=== PATIENT | male | born 1935 | race Caucasian/White ===

== ENCOUNTER 2018-11-25 16:03 | Emergency (ER) | payer MEDICARE ==
[~2018-11-25 16:03] MED LIST: Iopamidol 370 76% 100 ML VIAL ONE
[2018-11-25] MEDS ORDERED: Sodium Chloride 0.9% 1,000 ML ONE ×2 (16:29→18:18)
[2018-11-25 16:40] LABS: #Eosinphils 0.1 thou/uL (0.0-0.7); #Lymphocytes 0.5 thou/uL (1.20-3.40); #Monocytes 0.4 thou/uL (0.11-0.59); #Neutrophils 9.1 thou/uL (1.40-6.50); %Basophils 0.3 % (0.0-1.0); %Eosinophils 1.3 % (0.0-10.0); %Lymphocytes 5.1 % (21.0-51.0); %Monocytes 4.2 % (0.0-10.0); %Neutrophils 89.1 % (42.0-75.0); Hemoglobin 15.3 g/dL (14.0-18.0); Mean Corpuscular HGB CONC 33.3 g/dL (32.0-36.0); Mean Corpuscular Hemoglobin 30.9 pg (27.0-31.0); Mean Corpuscular Volume 92.9 fL (78.0-98.0); Mean Platelet Volume 6.9 fL (7.4-10.4); Platelet Count 217 thou/uL (130-400); RBC Distribution Width 12.4 % (11.5-14.5); Red Blood Cell (RBC) Count 4.94 mill/uL (4.70-6.10); White Blood Cell (WBC) Count 10.2 thou/uL (4.8-10.8)
[2018-11-25] MEDS ORDERED: Ondansetron PF 4 MG/2 ML Vial ONE (16:41)
[2018-11-25 16:52] LABS: ALT (SGPT) 31 U/L (8-55); AST (SGOT) 26 U/L (5-34); Albumin 4.5 g/dL (3.4-4.8); Alkaline Phosphatase 57 U/L (40-150); Anion Gap 16 mmol/L (10-20); BUN (Urea Nitrogen) 28 mg/dL (8.4-25.7); Bilirubin, Total 0.9 mg/dL (0.2-1.2); Calc. Creatinine Clearance 0 mL/min (70-130); Calcium 11.1 mg/dL (7.8-10.44); Carbon Dioxide 22 mmol/L (23-31); Chloride 103 mmol/L (98-107); Estimated GFR-MDRD 46; Globulin 2.8 g/dL (2.4-3.5); Glucose 100 mg/dL (83-110); Potassium 4.3 mmol/L (3.5-5.1); Protein, Total 7.3 g/dL (5.8-8.1); Sodium 137 mmol/L (136-145)
--- NOTE | 2018-11-25 17:02 | RAD ---
FRONTAL RADIOGRAPH CHEST: 11/25/18 COMPARISON: 04/17/14. HISTORY: Dizziness, hypotension. FINDINGS: There is mild pulmonary vascular congestion and diffuse mild increased linear interstitial density wi th no pneumothorax, pleural fluid, focal consolidation or alveolar edema. IMPRESSION: No acute findings. POS: [facility]
[2018-11-25] MEDS ORDERED: Aspirin Chewable 81 MG TAB ONE (17:31)
--- NOTE | 2018-11-25 18:38 | CT ---
CT angiogram chest: 11/25/2018 COMPARISON: None HISTORY: Chest pain, assess for pulmonary embolism TECHNIQUE: Axial CT imaging at 2.5 mm intervals through the chest with IV contrast using CT angiogram protocol with coronal and sagittal 3-D reformatted imaging. FINDINGS: Imaged upper abdomen demonstrates multiple hepatic hypodensities suggesting cysts. No pleur al, pericardial, or mediastinal fluid. No mediastinal, hilar, or axillary lymphadenopathy. No pulmonary arterial filling defects seen to suggest the presence of acute pulmonary arterial emboli sm. Scattered emphysematous changes are noted within both lungs with an upper lobe predominance. There is mild increased linear interstitial density noted peripherally. No acute pulmonary parenchymal abnormality noted. Review of the osseous structures demonstrates no acute findings. IMPRESSION: Chronic findings as detailed above. No evidence for pulmonary arterial embolism.
== END 2018-11-25 19:45 | disposition short-term general hospital (02) ==
LOC: NAV ERS 16:03
DX: R07.2 Precordial pain (principal); R94.31 Abnormal electrocardiogram [ECG] [EKG]; I12.9 Hypertensive chronic kidney disease with stage 1 through stage 4 chronic kidney disease, or unspecified chronic kidney disease; N18.9 Chronic kidney disease, unspecified; R42 Dizziness and giddiness; R79.1 Abnormal coagulation profile; I71.4 Abdominal aortic aneurysm, without rupture; I20.9 Angina pectoris, unspecified; Z79.899 Other long term (current) drug therapy; Z87.891 Personal history of nicotine dependence
CPT/HCPCS: 71045; 71275; 80053; 83880; 84484; 85025; 85379; 93005; 94760; 96361; 96374; J2405; J7050; Q9967

== ENCOUNTER → 2019-10-19 | Emergency (ER) | payer MEDICARE | LOC: NAV ERS 15:26 | DX: L23.7 Allergic contact dermatitis due to plants, except food (principal); I10 Essential (primary) hypertension; E03.9 Hypothyroidism, unspecified; I25.119 Atherosclerotic heart disease of native coronary artery with unspecified angina pectoris; N40.0 Benign prostatic hyperplasia without lower urinary tract symptoms; E78.5 Hyperlipidemia, unspecified; E78.00 Pure hypercholesterolemia, unspecified; Z87.891 Personal history of nicotine dependence; Z79.899 Other long term (current) drug therapy | CPT/HCPCS: 99282 ==

== ENCOUNTER 2020-03-22 09:37 | Emergency (ER) | payer MEDICARE ==
--- NOTE | 2020-03-22 10:21 | RAD ---
Chest AP view INDICATION: Tachycardia and shortness of breath COMPARISON: November 25, 2018 FINDINGS: Lungs: The lungs are clear Cardiac silhouette: The cardiomediastinal silhouette appears within normal limits. Pulmonary vasculature: Normal Pleural spaces: No pleural effusion or pneumothorax is demonstrated. Upper abdomen: No abnormality seen. Osseous structures: No acute osseous abnormality. Additional findings: None. IMPRESSION: No acute cardiopulmonary abnormality.
[2020-03-22 10:26] LABS: INR-International Normal Ratio 1.1; Prothrombin Time 14.5 sec (12.0-14.7)
[2020-03-22 10:27] LABS: D-Dimer Test 1.4 *mcg/mL (0.27-0.43)
[2020-03-22 10:35] LABS: ALT (SGPT) 25 U/L (8-55); AST (SGOT) 23 U/L (5-34); Albumin 4.1 g/dL (3.4-4.8); Alkaline Phosphatase 51 U/L (40-110); Anion Gap 16 mmol/L (10-20); BUN (Urea Nitrogen) 23 mg/dL (8.4-25.7); Bilirubin, Total 0.5 mg/dL (0.2-1.2); Calc. Creatinine Clearance 0 mL/min (70-130); Carbon Dioxide 19 mmol/L (23-31); Chloride 107 mmol/L (98-107); Estimated GFR-MDRD 58; Globulin 2.7 g/dL (2.4-3.5); Glucose 111 mg/dL (83-110); Potassium 3.8 mmol/L (3.5-5.1); Protein, Total 6.8 g/dL (5.8-8.1); Sodium 138 mmol/L (136-145)
[2020-03-22 10:42] LABS: #Basophils 0.1 thou/uL (0.0-0.2); #Eosinphils 0.1 thou/uL (0.0-0.7); #Lymphocytes 1.5 thou/uL (1.20-3.40); #Monocytes 0.5 thou/uL (0.11-0.59); #Neutrophils 3.5 thou/uL (1.40-6.50); %Basophils 1.3 % (0.0-1.0); %Lymphocytes 26.7 % (21.0-51.0); %Neutrophils 62.1 % (42.0-75.0); Hemoglobin 14.7 g/dL (14.0-18.0); Mean Corpuscular HGB CONC 33.4 g/dL (32.0-36.0); Mean Corpuscular Volume 95.7 fL (78.0-98.0); Mean Platelet Volume 6.9 fL (7.4-10.4); Platelet Count 195 thou/uL (130-400); Red Blood Cell (RBC) Count 4.59 mill/uL (4.70-6.10); White Blood Cell (WBC) Count 5.6 thou/uL (4.8-10.8)
--- NOTE | 2020-03-22 11:47 | CT ---
CTA Angio Chest W WO Con 03/22/2020 10:48 AM Indication: Tachycardia with shortness of breath Technique: Multiple CTA images were obtained of the thorax with IV contrast. 3-D rendering: MIP sallie nstructed images were created and reviewed. Comparison: Prior CT PE examination dated November 25, 2018 Findings: Pulmonary arteries: No central or segmental pulmonary embolus is evident. Heart and Aorta: Normal appearing. Mediastinum:Normal appearing. No enlarged lymph nodes. Lungs:Scattered emphysema. No consolidation. Pleural space: Clear. Upper Abdomen: Multiple hepatic cysts. Osseous Structures: There is scattered degenerative and osteoarthritic change present. No acute frac ture or subluxation demonstrated. Soft tissues:No abnormality. Other findings:None. Impression: No central or segmental pulmonary embolus. Scattered emphysema.
[2020-03-22] MEDS ORDERED: Aspirin Chewable 81 MG TAB ONE (12:28)
== END 2020-03-22 12:51 | disposition short-term general hospital (02) ==
LOC: NAV ERS 09:37
DX: R06.02 Shortness of breath (principal); R07.89 Other chest pain; E03.9 Hypothyroidism, unspecified; E78.00 Pure hypercholesterolemia, unspecified; I10 Essential (primary) hypertension; Z87.891 Personal history of nicotine dependence; Z79.899 Other long term (current) drug therapy; Z79.82 Long term (current) use of aspirin
CPT/HCPCS: 71045; 71275; 80053; 83605; 83880; 84484; 85025; 85379; 85610; 85730; 93005; Q9967

== ENCOUNTER 2021-12-31 12:32 | Emergency (ER) | payer MEDICARE ==
[2021-12-31 13:05] LABS: #Basophils 0.1 thou/uL (0.0-0.2); #Eosinphils 0.2 thou/uL (0.0-0.7); #Lymphocytes 1.8 thou/uL (1.20-3.40); #Monocytes 0.6 thou/uL (0.11-0.59); #Neutrophils 3.6 thou/uL (1.40-6.50); %Basophils 1.5 % (0.0-1.0); %Eosinophils 3.3 % (0.0-10.0); %Lymphocytes 28.8 % (21.0-51.0); %Monocytes 9.7 % (0.0-10.0); %Neutrophils 56.7 % (42.0-75.0); Hemoglobin 12.8 g/dL (14.0-18.0); Mean Corpuscular HGB CONC 31.7 g/dL (32.0-36.0); Mean Corpuscular Hemoglobin 31.3 pg (27.0-31.0); Mean Corpuscular Volume 98.7 fL (78.0-98.0); Mean Platelet Volume 8.6 fL (7.4-10.4); Platelet Count 214 thou/uL (130-400); RBC Distribution Width 12.4 % (11.5-14.5); White Blood Cell (WBC) Count 6.3 thou/uL (4.8-10.8)
[2021-12-31 13:19] LABS: ALT (SGPT) 25 U/L (8-55); AST (SGOT) 22 U/L (5-34); Albumin 4.1 g/dL (3.4-4.8); Alkaline Phosphatase 52 U/L (40-110); Anion Gap 14 mmol/L (10-20); BUN (Urea Nitrogen) 17 mg/dL (8.4-25.7); Bilirubin, Total 0.7 mg/dL (0.2-1.2); Calc. Creatinine Clearance 0 mL/min (70-130); Calcium 10.6 mg/dL (7.8-10.44); Carbon Dioxide 23 mmol/L (23-31); Chloride 106 mmol/L (98-107); Estimated GFR 70; Globulin 2.4 g/dL (2.4-3.5); Glucose 93 mg/dL (83-110); Magnesium 1.7 mg/dL (1.6-2.6); Potassium 3.7 mmol/L (3.5-5.1); Protein, Total 6.5 g/dL (5.8-8.1); Sodium 139 mmol/L (136-145)
[2021-12-31 14:13] LABS: Bilirubin Negative (Negative); Blood, Urine Trace (Negative); Clarity Clear (Clear); Glucose, Urine (Dipstick) Negative (Negative); Ketone, Urine Negative (Negative); Leukocyte Negative (Negative); Nitrite Negative (Negative); Protein, Urine (Dipstick) 30 mg/dL (Neg-Trace); Urobilinogen 0.2 mg/dL (Less than 2); pH, Urine 6.5 (5.0-9.0)
[2021-12-31 14:27] LABS: RBC/HPF 0-3 HPF (0-3)
== END 2021-12-31 14:40 | disposition home or self-care (01) ==
LOC: NAV ERS 12:32
DX: R53.83 Other fatigue (principal); R06.02 Shortness of breath; I25.119 Atherosclerotic heart disease of native coronary artery with unspecified angina pectoris; E03.9 Hypothyroidism, unspecified; N40.0 Benign prostatic hyperplasia without lower urinary tract symptoms; E78.00 Pure hypercholesterolemia, unspecified; Z87.891 Personal history of nicotine dependence; Z79.82 Long term (current) use of aspirin; Z79.899 Other long term (current) drug therapy
CPT/HCPCS: 71045; 80053; 81003; 81015; 83735; 83880; 84443; 84484; 85025; 93005; 94760